=== PATIENT | male | born 1950 | race Caucasian/White ===

== ENCOUNTER 2019-04-26 06:19 | Day surgery (SDC) | payer MEDICARE, OTHER ==
[~2019-04-26 06:19] MED LIST: KETOROLAC TROMETHAMINE 0.45% 4 DROP/0.4 ML DROPERETTE OD PRN
[2019-04-26] MEDS: TETRACAINE HCL 0.5% OPH SOLN 4 ML OD PRN ×3 (06:40→07:31)
[2019-04-26] MEDS: TROPICAMIDE 1% OPH SOLN 3 ML OD PRN ×3 (06:40→07:10)
[2019-04-26] MEDS: CYCLOPENTOLATE 0.2%/PHENYLEPHRINE 1% OPH SOLN 2 ML OD PRN ×3 (06:40→07:10)
[2019-04-26] MEDS: BESIFLOXACIN HCL 0.6% OPH SUSP 5 ML BOTTLE OD PRN ×4 (06:40→07:52)
[2019-04-26] MEDS ORDERED: FENTANYL CITRATE INJ/PF 100 MCG/2 ML AMPUL ONE (06:43)
[2019-04-26] MEDS ORDERED: MIDAZOLAM 2 MG/2 ML INJ ONE (06:44)
[2019-04-26] MEDS ORDERED: ALBUTEROL SULFATE 0.083% NEB 2.5 MG/3 ML AMPUL NEB ONE (06:52)
[2019-04-26] MEDS ORDERED: CHONDR SU A NA/HYALUR INTRAOC KIT (SURGICARE) ONE (07:14)
[2019-04-26] MEDS ORDERED: LIDOCAINE 1%/PHENYLEPHRINE 1.5% 1 ML VIAL ONE (07:14)
[2019-04-26] MEDS ORDERED: EPINEPHRINE INJ/PF 1 MG/1 ML AMPULE ONE (07:14)
[2019-04-26] MEDS: DORZOLAMIDE HCL 2%/TIMOLOL MALEAT 0.5% OPH SOLN 10 ML OD PRN ×2 (07:52)
--- NOTE | 2019-04-26 20:25 | [facility] OPERATIVE REPORT E ---
[facility] Operative Report NAME: LU WAITE AGE: 68Y DATE OF SURGERY: 04/26/2019 ROOM: PREOPERATIVE DIAGNOSIS: CATARACT, RIGHT EYE. POSTOPERATIVE DIAGNOSIS: CATARACT, RIGHT EYE. OPERATION: Cataract extraction with insertion of an IOL of the right eye. SURGEON: JESSICA EDWARDS M.D. ANESTHESIA: Topical. PROCEDURE: After obtaining appropriate consent, the patient's right eye was prepped and draped in sterile fashion as well as the surgeon in a sterile manner and cataract surgery was started. First a paracentesis blade was used to make a side-port incision. Viscoelastic was used to inflate the anterior chamber. Next a 2.4 mm incision was made with a 2.4 mm blade, clear corneal temporally. A continuous capsulorrhexis was made using a cystotome and Utrata forceps. Following this hydrodissection was carried out to make the lens fully loose and mobile and it was rotated 90 degrees. Following this, a uxpspw-cwf-mimdzpj technique was used to phacoemulsify the lens with a CDE of 10.29. The remaining cortex was removed with irrigation/aspiration. Provisc was instilled into the capsular bag to inflate the bag. A SN60WF, 6.0 diopter lens was placed. The remaining viscoelastic material was removed with irrigation/aspiration. Following this, the incision was found to be watertight. Besivance was instilled into the eye and a protective shield was placed over the eye. The patient returned to the postoperative recovery in stable condition. DICTATING PHYSICIAN: JESSICA EDWARDS M.D. [id number] 2019 PHY#: [id number] ID: [id number] JOB#: [id number] ACCT: [id number] cc:JESSICA EDWARDS M.D. >
--- NOTE | 2019-04-26 20:25 | [facility] DISCHARGE SUMMARY E ---
[facility] Discharge Summary NAME: LU WAITE AGE: 68Y ADMITTED: 04/26/2019 DISCHARGED: This is a 68-year-old male who underwent cataract extraction right eye. DIAGNOSIS: Cataract right eye. He underwent surgery because he was having an imbalance between both eyes. He should be on a regular diet. No bending at the waist and no heavy lifting. He should use his moxifloxacin, Prolensa, and Pred Forte at 3:00 p.m. and 8:00 p.m. and sleep with a rigid shield. I will see him for his 1-day postop tomorrow. DICTATING PHYSICIAN: JESSICA EDWARDS M.D. [id number] [id number] PHY#: [id number] ID: [id number] JOB#: [id number] ACCT: [id number] cc:JESSICA EDWARDS M.D. >
== END 2019-04-26 08:31 | disposition home or self-care (01) ==
LOC: SC 06:19
PROVIDERS: ATTEND Internal Medicine
DX: H25.11 Age-related nuclear cataract, right eye (principal); F17.210 Nicotine dependence, cigarettes, uncomplicated; Z88.0 Allergy status to penicillin; H26.492 Other secondary cataract, left eye; Z96.1 Presence of intraocular lens; H59.81 Chorioretinal scars after surgery for detachment; J45.909 Unspecified asthma, uncomplicated
CPT/HCPCS: 66984; C1713; J2250; J3490 ×2; A9270 ×2; J0171; J3010; J2370; 142